=== PATIENT | male | born 1950 | race Caucasian/White ===

== ENCOUNTER → 2018-01-24 | Outpatient (CLI) | payer BC ==
[~2018-01-24] MED LIST: AMLO-114 PO; GLIP10TA9 PO; LEVO150T9 PO; LISI40TA PO; METO25TA3 PO; PANT40TA PO; REPA1TAB10 PO
== END | disposition home or self-care (01) ==
LOC: C.PATHSPEC 18:32
PROVIDERS: ATTEND Ophthalmology
DX: L91.8 Other hypertrophic disorders of the skin (principal)